=== PATIENT | male | born 1965 | race Hispanic/Latino ===

== ENCOUNTER → 2020-12-01 | Outpatient (CLI) | payer BC ==
[~2020-12-01] MED LIST: ALBUMIN (HUMAN) 25% 200 ML IV SCH
[2020-12-01 08:25] LABS: HEMATOCRIT 31.3 % (42-54); MEAN CORPUSCULAR HEMOGLOBIN 30.3 pg (27.0-33.0); MEAN CORPUSCULAR HGB CONC 32.9 g/dL (32.0-36.0); MEAN CORPUSCULAR VOLUME 92.1 fL (79-99); PLATELET COUNT (AUTO) 245 K/uL (130-400); RED CELL DISTRIBUTION WIDTH 13.9 % (11.0-15.5); WHITE BLOOD COUNT (AUTO) 8.3 K/uL (4.8-10.8)
[2020-12-01 08:42] LABS: INR 1.23 (0.85-1.15); PROTHROMBIN TIME 12.6 SEC (9.6-11.6)
[2020-12-01 08:46] LABS: BILIRUBIN,TOTAL 3.4 mg/dL (0.2-1.0); CREATININE 1.5 mg/dL (0.5-1.5); POTASSIUM 4.1 mmol/L (3.5-5.1); TOTAL PROTEIN, SERUM 8.4 g/dL (6.0-8.3)
[2020-12-01 08:59] LABS: EOSINOPHILS % (MANUAL) 3 % (1-6); LYMPHOCYTES % (MANUAL) 29 % (22-44); MONOCYTES % (MANUAL) 6 % (2-9); SEGMENTED NEUTROPHILS % 62 % (40-70)
[2020-12-01 09:00] LABS: MAN.DIFF COMMENT-IMPRESSION MANUAL DIFFERENTIAL; PLATELET MORPHOLOGY COMMENT ADEQUATE
[2020-12-01 12:57] LABS: ALBUMIN,BODY FLUID 1.4 g/dL
[2020-12-01 13:44] LABS: SPECIMENTYPE,BODY FLUID ASCITES
[2020-12-01 13:45] LABS: APPEARANCE BODY FLUID SLIGHTLY CLOUDY (CLEAR); COLOR,BODY FLUID YELLOW (LT YELLOW); TOTAL VOLUME,BODY FLUID 15000 mL
[2020-12-01 13:53] LABS: BODY FLUID RBC 1325 /cu. mm.; BODY FLUID WBC 640 /cu. mm.
[2020-12-01 14:00] LABS: BF LYMPHOCYTE 31 %; BF MESOTHELIAL 3 %; BF MONOCYTE 6 %
== END ==
LOC: RAH 07:49
PROVIDERS: ATTEND Internal Medicine Gastroenterology
DX: R18.8 Other ascites (principal)
CPT/HCPCS: 36415; 49083; 80053; 82042; 84157; 85025; 85610; 87071; 87205; 89051; A4215; P9046; 96365

== ENCOUNTER → 2020-12-06 | Outpatient (CLI) | payer BC ==
[2020-12-06 17:39] LABS: ALBUMIN,BODY FLUID 1.3 g/dL
[2020-12-06 18:20] LABS: APPEARANCE BODY FLUID CLOUDY (CLEAR); COLOR,BODY FLUID DARK YELLOW (LT YELLOW); SPECIMENTYPE,BODY FLUID ASCITES; TOTAL VOLUME,BODY FLUID 8000 mL
[2020-12-06 18:21] LABS: BODY FLUID RBC 2440 /cu. mm.; BODY FLUID WBC 140 /cu. mm.
[2020-12-06 18:44] LABS: BF LYMPHOCYTE 38 %; BF MONOCYTE 2 %; BF OTHER CELLS 7
== END ==
LOC: RAH 09:10
PROVIDERS: ATTEND Internal Medicine Gastroenterology
DX: R18.8 Other ascites (principal); F41.9 Anxiety disorder, unspecified; F32.9 Major depressive disorder, single episode, unspecified; C61 Malignant neoplasm of prostate; Z96.652 Presence of left artificial knee joint; Z79.899 Other long term (current) drug therapy; Z90.49 Acquired absence of other specified parts of digestive tract; K74.69 Other cirrhosis of liver
CPT/HCPCS: 49083; 82042; 84157; 87071; 87205; 89051; A4215; P9046; 96365

== ENCOUNTER → 2020-12-30 | Outpatient (CLI) | payer BC ==
[2020-12-30 14:15] LABS: APPEARANCE BODY FLUID CLEAR (CLEAR); COLOR,BODY FLUID YELLOW (LT YELLOW); SPECIMENTYPE,BODY FLUID ASCITES; TOTAL VOLUME,BODY FLUID 4800 mL
[2020-12-30 14:16] LABS: BODY FLUID RBC 950 /cu. mm.; BODY FLUID WBC 317 /cu. mm.
[2020-12-30 14:19] LABS: BF LYMPHOCYTE 46 %; BF MONOCYTE 14 %
== END ==
LOC: RAH 07:28
PROVIDERS: ATTEND Internal Medicine
DX: R18.8 Other ascites (principal); K74.69 Other cirrhosis of liver
CPT/HCPCS: 49083; 87071; 87205; 89051; A4215; P9046

== ENCOUNTER → 2021-01-24 | Outpatient (CLI) | payer BC ==
[2021-01-24 09:26] LABS: INR 1.14 (0.85-1.15); PROTHROMBIN TIME 12.3 SEC (9.6-11.6)
[2021-01-24 12:48] LABS: COLOR,BODY FLUID YELLOW (LT YELLOW); SPECIMENTYPE,BODY FLUID ASCITES
[2021-01-24 12:49] LABS: APPEARANCE BODY FLUID SLIGHTLY CLOUDY (CLEAR); BODY FLUID RBC 937 /cu. mm.; BODY FLUID WBC 515 /cu. mm.; TOTAL VOLUME,BODY FLUID 4000 mL
[2021-01-24 13:22] LABS: BF LYMPHOCYTE 83 %; BF MESOTHELIAL 3 %; BF MONOCYTE 11 %
== END | disposition home or self-care (01) ==
LOC: RAH 08:06
PROVIDERS: ATTEND Internal Medicine
DX: R18.8 Other ascites (principal); K74.60 Unspecified cirrhosis of liver; F41.9 Anxiety disorder, unspecified; F32.9 Major depressive disorder, single episode, unspecified; K59.04 Chronic idiopathic constipation; Z90.49 Acquired absence of other specified parts of digestive tract; Z98.890 Other specified postprocedural states; Z79.899 Other long term (current) drug therapy; Z79.01 Long term (current) use of anticoagulants; Z85.46 Personal history of malignant neoplasm of prostate
CPT/HCPCS: 36415; 49083; 85610; 87071; 87205; 89051; A4215; P9046

== ENCOUNTER → 2021-02-16 | Outpatient (CLI) | payer BC | END | disposition home or self-care (01) | LOC: RAH 07:41 | PROVIDERS: ATTEND Internal Medicine Gastroenterology | DX: R18.8 Other ascites (principal) | CPT/HCPCS: 76705 ==

== ENCOUNTER 2021-06-21 06:03 | Day surgery (SDC) | payer BC ==
[~2021-06-21] VITALS: Ht 172.7 cm; Wt 73.5 kg
[~2021-06-21 06:03] MED LIST changes: -ALBUMIN (HUMAN) 25% 200 ML IV SCH; +FURO20TA4 PO; +GABA-533 PO; +LACT10SO9 PO; +SPIR50TA PO
[2021-06-21] MEDS ORDERED: 0.9%NACL 1000ML 1,000 ML IV ONE (06:16)
[2021-06-21 06:45] VITALS: BP 104/67
[2021-06-21] MEDS ORDERED: PROPOFOL 10 MG/ML 20ML VIAL IV ONE (07:34)
[2021-06-21] MEDS ORDERED: LIDOCAINE HCL 1% 20 ML VIAL ONE (07:34)
[2021-06-21] MEDS ORDERED: 0.9%NACL 10ML VIAL ONE (07:40)
[2021-06-21] MEDS ORDERED: PHENYLEPHRINE HCL 10 MG/ML 1ML VIAL IV ONE (07:40)
[2021-06-21] MEDS ORDERED: GLYCOPYRROLATE 1 MG/5 ML SYRINGE ONE (07:41)
[2021-06-21 07:55] VITALS: BP 77/46
[2021-06-21 08:00] VITALS: BP 100/59
[2021-06-21 08:05] VITALS: BP 99/65
[2021-06-21 08:10] VITALS: BP 104/60
[2021-06-21 08:20] VITALS: BP 109/67
== END 2021-06-21 08:20 | disposition home or self-care (01) ==
LOC: DAH 06:03 → ENDO 06:03
PROVIDERS: ATTEND Internal Medicine Gastroenterology
DX: Z12.11 Encounter for screening for malignant neoplasm of colon (principal); Z20.822 Contact with and (suspected) exposure to COVID-19; R63.5 Abnormal weight gain; F41.9 Anxiety disorder, unspecified; F32.9 Major depressive disorder, single episode, unspecified; K74.69 Other cirrhosis of liver; R18.8 Other ascites; Z90.49 Acquired absence of other specified parts of digestive tract; Z98.890 Other specified postprocedural states; Z80.42 Family history of malignant neoplasm of prostate; Z79.01 Long term (current) use of anticoagulants; Z68.25 Body mass index [BMI] 25.0-25.9, adult
CPT/HCPCS: 45378; 87635; A4215 ×2; A4221; A4222; A4223; A4606; A4620; A4657; A4663; C9803; J2370; J2704; J3490; J7030